=== PATIENT | female | born 1985 | race Caucasian/White ===

== ENCOUNTER → 2021-03-02 11:02 | Outpatient (CLI) | payer OTHER, SELFPAY ==
--- NOTE | 2021-03-02 11:13 | DIET.PN1 ---
Dietary Progress Note Assessment: 35y 10w F attending RD visit for help with dietary recommendations to support her with her new dx of eosinophilic esophagitis. 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 During this time pt started experiencing a lot of burping and heartburn. She attributed this to stress or thinking she had a gastric ulcer from taking ibuprofen. family hx of EOE with father needing stretched esophagus, food and liquid getting stuck in throat. Pt started eliminating dairy from diet with some sx resolving and had diagnostic EGD indicating EOE just above threshold for diagnosis. Pt did EOE elimination diet x2.5w, sx resolved, went to [facility] for [place], ate all the food, felt worse again. EOE elimination: Dairy, wheat, eggs, soy chicken, pork, beef, corn Pt is craving carbs and having a tough time following EOE diet, wants to ensure getting proper nutrition for supporting and to reduce sx. Pt is taking vitamin daily. Ht: 5'10 Wt: 127# (maybe lost weight) BMI: 17.9 (underweight) UBW: 130-135# Nutrition Diagnosis: nutrition related knowledge deficit r/t diet to support and EOE aeb pt previously on restrictive elimination diet to manage EOE, pt 10w , BMI 17.9 (underweight), pt has many questions on nutrition for her current condition. Interventions: 1. Discussed nutrients of concern during and food sources of each including substitutions for the top allergens. Provided pt handout to reinforce teaching. 2. Discussed current research on EOE elimination diet with dairy and wheat being top two offenders. Research shows good results with elimination of dairy, wheat, eggs, soy, tree nuts, peanuts with the goal of challenging each food individually once sx resolve to assess for sx triggering foods. 3. Because pt not having dysphagia and her morning sickness is leading to food aversions, pt will avoid dairy and wheat for the next few weeks until morning sickness lightens up at which point she can start the 4 or 6 food elimination diet, substituting approved foods for those eliminated to ensure adequate intake nutrients. Pt has a 4w meal plan to follow. 4. At some point after delivery, pt will test all foods to try to induce sx trigger to ensure pt is only avoiding foods which actually cause sx. EER: 27mg iron, 600mcg folate, 1200mg calcium, 200mcg iodine in addition to reccs for healthy female adult Monitoring/Evaluations: pt will schedule prn or if weight continues to drop rather than increase. Electronically Signed by: Marisa Russell 03/02/21 11:13 Clinical Dietitian [address] [address]
== END ==
PROVIDERS: Referring Provider Internal Medicine Gastroenterology; Visit Provider Internal Medicine Gastroenterology
DX: O26.891 Other specified pregnancy related conditions, first trimester (principal); K20.0 Eosinophilic esophagitis; Z71.3 Dietary counseling and surveillance; Z3A.10 10 weeks gestation of pregnancy; Z68.1 Body mass index [BMI] 19.9 or less, adult
CPT/HCPCS: 97802

== ENCOUNTER → 2021-05-05 10:50 | Outpatient (CLI) | payer OTHER, SELFPAY ==
--- NOTE | 2021-05-05 | DI.US.S_ITS ---
PROCEDURE: US OB >= 14 WEEKS FETUS INDICATIONS: ANATOMY SCAN OUTSIDE/PRIOR DATING DATA: Last menstrual period (LMP): 12/18/2020. LMP-based estimated date of delivery (GOYO): 09/24/2021. First dating scan (date and location): 05/05/2021. Estimated date of delivery (GOYO) from first dating scan: 09/25/2021. TECHNIQUE: Real-time scanning was performed of the fetus, with image documentation and biometric measurements. Endovaginal scanning: None COMPARISON: None. FINDINGS: General: A single living intrauterine gestation is present. Presentation: Variable. Placenta: Placental position is anterior , without previa. Amniotic fluid index: 15.2 cm, normal range is 5-24 cm. heart rate: 149 beats per minute. Maternal cervical canal: 3.9 cm long. Normal lower limit is 2.5 cm. biometrics: Biparietal diameter: 4.5 cm, 19 week 4 day Head circumference: 16.6 cm, 19 week 2 day Abdominal circumference: 14.7 cm, 20 week 0 day Femur length: 3.1 cm, 19 week 3 day Clinically estimated gestational age: Not applicable Composite gestational age from present scan: 19 week 4 day Estimated weight and percentile: 306 g, 43 percentile Anatomic survey: Neuro: Ventricles are non-dilated at less than 10 mm. Cisterna magna is normal at 3-11 mm. Cerebellum is normal in size and morphology. Nuchal skin fold: 6.2 mm, upper limits of normal Face: Nose and lips, facial profile are normal. Spine: No evidence for spina bifida. Heart: Four-chamber heart and outflow tracts are not well visualized on current exam Diaphragm: Diaphragm is intact. Stomach: Left-sided stomach is present. Kidneys: No hydronephrosis. Normal is less than 5 mm in 2nd trimester, less than 7 mm in 3rd trimester. Cord: 3-vessel cord has orthotopic insertion. Bladder: Normal in size. Extremities: All 4 extremities identified. IMPRESSION: Single live intrauterine consistent with a 19 week 4 day gestation. Four-chamber heart and outflow tracts are not well visualized on current exam, and will be further evaluated on follow-up imaging. Nuchal fold thickness 6.2 mm, upper limits of normal for gestational ag Approved by: Tenzin Hopkins M.D. on 05/05/2021 at 13:33 e
== END ==
PROVIDERS: Referring Provider Nurse Practitioner Obstetrics & Gynecology; Visit Provider Nurse Practitioner Obstetrics & Gynecology
DX: Z3A.19 19 weeks gestation of pregnancy; Z36.89 Encounter for other specified antenatal screening
CPT/HCPCS: 76811

== ENCOUNTER → 2021-07-06 07:00 | Outpatient (CLI) | payer OTHER, SELFPAY ==
[2021-07-06 08:52] LABS: Glucose Fasting 71 mg/dL (70-100)
[2021-07-06 08:53] LABS: Glucose 1 Hour 150 mg/dL (70-170)
[2021-07-06 10:20] LABS: Glucose Tol Interpretation INTERPRETATION
[2021-07-06 10:59] LABS: Glucose 3 Hour 85 mg/dL (70-115)
[2021-07-06 11:25] LABS: Glucose 2 Hour 124 mg/dL (70-140)
== END ==
PROVIDERS: Referring Provider Nurse Practitioner Obstetrics & Gynecology; Visit Provider Nurse Practitioner Obstetrics & Gynecology
DX: Z34.90 Encounter for supervision of normal pregnancy, unspecified, unspecified trimester (principal); Z3A.26 26 weeks gestation of pregnancy
CPT/HCPCS: 36415; 82951; 82952

== ENCOUNTER → 2021-08-30 20:30 | Outpatient (ROUT) | payer OTHER, SELFPAY ==
[2021-08-31 15:34] LABS: Strep Grp B PCR NEG for Grp B Strep
== END ==
PROVIDERS: Visit Provider Nurse Practitioner Obstetrics & Gynecology
DX: Z34.90 Encounter for supervision of normal pregnancy, unspecified, unspecified trimester (principal); Z36.85 Encounter for antenatal screening for Streptococcus B; Z3A.36 36 weeks gestation of pregnancy
CPT/HCPCS: 87653

== ENCOUNTER 2021-10-05 07:01 | Inpatient (IN) | payer OTHER, SELFPAY ==
--- NOTE | 2021-10-05 07:24 | PM.OBHP.1 ---
OB HPI Date/Time Date of admission: 10/05/21 Date Patient Seen: 10/05/21 Time Patient Seen: 07:15 History of Present Condition Chief complaint: INDUCTION : 1 Para: 0 Estimated Date of Delivery: 09/24/21 Estimated Gestational Age (weeks): 41.4 Narrative: Isabel Taylor is a 36 year old female @ [id number] by LMP and 10wk US who presents for IOL. Has been feeling BH ctx, but nothing uncomfortable. No vaginal bleeding or leaking of fluid. Uncomplicated PN care w/ CNM. Desires low intervention . is present and supportive. Indications Indication for induction OB: post dates History of Present care: good care, initiated at week # (10), number of visits (13) and pounds weight gain (21.6) Dating criteria: LMP confirmed by 1st trimester US Ultrasounds: normal 1st trimester US, normal mid trimester US and other (37wk growth WNL, 41wk MARSHA 6.39cm) Obstetrical complications: none Medical complications: none Preadmission Labs Blood type: B (+) positive -: Antibody screen: negative, GBS status: negative, HBsAG: negative, HIV: negative and RPR/VDLR: negative -: Chlamydia screen: not detected and Gonorrhea screen: not detected -: Rubella: immune and Varicella: immune HCT: 35.9 HCAB: negative 1 hr GTT: 144 3 hr GTT: 1 hr (150), 2 hr (124) and 3 hr (85) Fasting blood glucose: 71 Evaluation Evaluation Baseline heart rate: 135 Variability: Moderate (11-25) monitor accelerations: Present Monitor Decelerations: Absent Contraction Frequency (minutes): 0 Status: Category l Dilation (cm): 4.5 Effacement (%): 80 Dilation: 3-4 cm Effacement: >/=80% station: -2 Position of cervix: posterior Consistency: soft Kendrick score: 8 PFSH Medical History (Updated 10/05/21 @ 07:36 by Layne Dennison CNM) Abnormal Pap smear of cervix Family History Other Autoimmune disorder Preeclampsia Social History marital status: household members: spouse occupational status: employed Meds Home Medications and Allergies Home Medications Medication Instructions Recorded Confirmed Type pantoprazole 40 mg tablet,delayed 40 mg PO DAILY 10/05/21 10/05/21 History release Allergies Allergy/AdvReac Type Severity Reaction Status Date / Time Penicillins Allergy Severe Hives and Verified 10/05/21 07:42 Angioedema cefaclor [From Ceclor] Allergy Unknown unknown Verified 10/05/21 07:42 loracarbef [From Lorabid] Allergy Unknown unknown Verified 10/05/21 07:42 Review of Systems Review of Systems ROS: Yes All systems reviewed with the patient and are negative except as otherwise documented OB Exam Presentation: vertex Assessment and Plan Assessment and Plan Assessment and Plan narrative: A: [place] @ 41.4, not in labor Postdates IOL Cervical ripening not indicated, appropriate for pitocin GBS prophylaxis not indicated Category 1 FHT P: Admit, routine orders Begin pitocin per protocol Reassess 4-6 hours or sooner PRN
[2021-10-05 08:22] LABS: Add Manual Diff / Slide Review NO; Basophils Absolute Auto 0 /uL (0-100); Basophils Percent Auto 0.4 % (0-2); Eosinophils Absolute Auto 0 /uL (0-450); Eosinophils Percent Auto 0.3 % (2-4); Hematocrit 36.3 % (36-46); Hemoglobin 12.8 g/dL (12.0-16.0); Lymphocytes Absolute Auto 1700 /uL (1100-4500); Mean Corpuscular HGB Conc 35.1 % (30-36); Mean Corpuscular Hemoglobin 31.1 PG (26-34); Mean Corpuscular Volume 88.5 fL (80-100); Monocytes Absolute Auto 600 /uL (0-900); Monocytes Percent Auto 6.4 % (3-14); Neutrophils Absolute Auto 7400 /uL (1500-7000); Neutrophils Percent Auto 75.9 % (50-75); Platelet Count 140 X10^3/uL (150-400); Red Blood Cell Count 4.11 X10^6/uL (4.0-5.2); Red Cell Distribution Width 12.8 % (11.6-14.8); White Blood Cell Count 9.7 X10^3/uL (4.5-11.0)
[2021-10-05] MEDS: LACTATED RINGERS 1,000 ML 100 ML IV ×2 (08:29→17:59)
[2021-10-05 08:34] LABS: COVID19 -Nasal RAPID Negative (Negative)
[2021-10-05] MEDS: OXYTOCIN PREMIX 30 UNIT/500 ML PLAST..BAG IV (08:44)
[2021-10-05 09:28] VITALS: BP 122/69
--- NOTE | 2021-10-05 11:05 | PM.OBPNLAB ---
Date/Time Date Patient Seen: 10/05/21 Time Patient Seen: 11:05 Pain Control Pain control: tolerating well Comments: Isabel reports feeling contractions as pressure similar to what she was feeling at home. Tolerating well. Hoping to spend some time walking. Pelvic Exam Dilation (cm): 4 Effacement (%): 80 station: -2 Comments: CE deferred. Contractions Contractions on admission: none Monitor mode: External Pitocin rate (mU/min): 6 Contraction frequency (min): 3 Contraction duration (min): 1 Contraction pattern: Regular Contraction intensity: Mild Status status: Category l Heart Rate Baseline: 135 Monitor Accelerations: Present Monitor Decelerations: Absent Monitor Variability: Moderate Assessment and Plan Assessment: induction ongoing Plan: continuous present management Comments: Encouraged ambulation and continued movement. Repeat CE after 2 hours of strong contractions Reassess in 4-6 hours or sooner PRN
--- NOTE | 2021-10-05 17:09 | PM.OBPNLAB ---
Date/Time Date Patient Seen: 10/05/21 Time Patient Seen: 17:09 Pain Control Pain control: tolerating well Comments: VS: BP 121/65mmHg, HR 91bpm, RR 16/min, T 37.1C Pelvic Exam Dilation (cm): 5 Effacement (%): 80 station: -1 Amniotic membrane status: Intact Contractions Contractions on admission: irregular Monitor mode: External Pitocin rate (mU/min): 16 Contraction frequency (min): 2 Contraction duration (min): 1 Contraction pattern: Regular Contraction intensity: Moderate Status status: Category ll (overall reassuring) Heart Rate Baseline: 150 Monitor Accelerations: Present Monitor Decelerations: Variable Monitor Variability: Moderate Assessment and Plan Assessment: induction ongoing Plan: continuous present management Comments: Discussed option for AROM which patient desires. Plan light snack for patient, then AROM and ambulation. Reassess 4 hours after AROM.
--- NOTE | 2021-10-05 23:40 | PM.OBPRVD ---
Events: Labor Induction (post dates) Labor & Delivery Delivery date: 10/05/21 Intrapartal Events: None Cervical ripening method: none Induction method: per pitocin protocol Delivery augmentation: rupture of membranes Delivery monitor: external FHT and external uterine Route of delivery: Episiotomy description: None L&D Laceration Description: Labial (left labial/periclitoral) Delivery repair: chromic (4.0) Estimated blood loss (mL): 20 Quantitative Blood Loss: 20 Anesthesia Type: Epidural Narrative: Nessa achieved moderate pain relief with epidural but quickly felt increasing rectal pressure. Was examined and found to be complete and +1. Slow but steady descent of head with coached pushing efforts and position changes over 3 hour second stage. Delivered KERRY, restituted to OA. No nuchal cord and shoulders delivered easily without additional manuevers. Four-handed catch with SNM, Devika Wade, and FOB, under my direct supervision. Baby was placed on maternal abdomen for drying and [id number]. Pitocin given through IV for AMTSL. Perineum and vagina inspected and revealed first degree periclitoral/left labial laceration and superficial perineal split. Delayed cord clamping after pulsating ceased, double clamped by SNM and cut by FOB. Cord blood collected. Apparently intact placenta with 3 vessel cord delivered Schultze with gentle cord traction, trailing membranes teased out with ring forceps. Fundus immediately firm and bleeding scant. Laceration repaired under adequate epidural anesthesia with 4-0 chromic. QBL 20 ml. Mother and baby skin to skin and stable as I left the room. Baby 1: Infant gender: Male Presentation: vertex Position: Right Occiput Anterior Placenta delivery description: Spontaneous and Normal Configuration Cord Vessel Description: 3 Vessels score (1 min): 9 score (5 min): 9 weight: 4.079 kg Plan for aftercare: Routine care
[2021-10-06] MEDS: KETOROLAC 30 MG/ML VIAL IV (05:24)
[2021-10-06] MEDS: ACETAMINOPHEN 325 MG TABLET 650 MG PO ×2 (09:20→15:26)
[2021-10-06] MEDS: LANOLIN OINT 7 GM 1 APPLIC TOP (11:36)
[2021-10-06] MEDS: IBUPROFEN 600 MG TABLET PO (11:36)
--- NOTE | 2021-10-06 18:06 | PM.OBDS.1 ---
Discharge Providers Provider Date of admission: 10/05/21 07:01 Discharge Date: 10/06/21 Primary care physician: Doctor Xin MD Consults: 10/06/21 23:39 Consult to Malted Milk Supervisor Routine Comment: Discharge provider: Layne Dennison CNM Summary Hospital Course Date Patient Seen: 10/06/21 Time Patient Seen: 17:45 Diagnoses: O70.0 Hospital Course: PPD1 s/p NSVB: Nessa is voiding, ambulating and independently. Tolerating a general diet. Pain is well controlled w/ PO medication. Vaginal bleeding is light,without clots. Feels ready for d/c to hoe tonight. Hsband remains present and supportive. Peripartum Data Infant Delivery Method: Natural Vaginal Episiotomy description: None complications: none [place] 1: Gender: Male Disposition of : home Discharge Diagnosis (1) Del w/ 1 deg lac-unsp: Start Date: 10/05/21 Start Time: 22:43 Status: Acute Status at Discharge Cognitive/behavioral status at discharge: oriented Functional status at discharge: independent ambulation Overall status at discharge: patient is back to baseline Time Spent with Patient Time attestation: Total time spent providing and/or coordinating discharge services: Time spent: Greater than 30 minutes Specific discharge activities: Routine PP orders and precautions Objective Labs Result Diagrams: 10/05/21 08:05 Exam Vital Signs (past 8 hours): BP 115/60mmHg, HR 73bpm, T 36.8C Axillary Presentation: vertex Discharge Plan Discharge Plan Patient Disposition: Home Discharge orders & Medications Prescriptions: Discontinued pantoprazole 40 mg Tablet,Delayed Release (Dr/Ec) 40 mg PO DAILY 0RF Follow up/Referrals: Doctor Lauren MD [Primary Care Provider] - Layne Dennison CNM [Advanced Sheet Mill Supervisor] - (Follow-up by telehealth 10/18/21 @ 1245 Follow-up in office 11/08/21 @ 1100) Diet/Activity/Treatments Diet: Diet as Tolerated and Regular Activity: pelvic rest x 6 weeks Skin/Wound/Dressing Care Report to your healthcare provider any signs of infection, such as:: chills, fever, increased pain, unusual drainage and unusual redness Visit Report/Discharge Packet Stand Alone Forms: Discharge: Care Discharge Data Primary Care Provider: Doctor Xin
[2021-10-06 18:16] VITALS: BP 122/69
== END 2021-10-06 19:35 | disposition home or self-care (01) | DRG 807 ==
PROVIDERS: Admitting Provider Nurse Practitioner Obstetrics & Gynecology; Referring Provider Nurse Practitioner Obstetrics & Gynecology; Visit Provider Nurse Practitioner Obstetrics & Gynecology
DX: O48.0 Post-term pregnancy (principal); Z37.0 Single live birth; Z3A.41 41 weeks gestation of pregnancy; O70.0 First degree perineal laceration during delivery; Z20.822 Contact with and (suspected) exposure to COVID-19
CPT/HCPCS: 01967; 36415; 59050; 85025; 86850; 86900; 86901; 87635; C9803; G0379; J1885; J2590

== ENCOUNTER → 2022-10-14 08:16 | Outpatient (CLI) | payer OTHER, SELFPAY ==
--- NOTE | 2022-10-14 08:17 | DI.RAD.S_ITS ---
PROCEDURE: XR LUMBAR SPINE 6V W BENDING INDICATIONS: 5 years, low back pain and right radic TECHNIQUE: 7 views of the lumbar spine acquired, including flexion and extension views and oblique views. COMPARISON: None. FINDINGS: Bones: Five nonrib-bearing vertebrae are present. Trace levoconvex curvature. No spondylolisthesis. No vertebral body compression fractures. No suspicious bony lesions. Mild degenerative facet hypertrophy is seen in the lower lumbar spine. Soft tissues: Overlying bowel gas pattern is normal. No suspicious soft tissue calcifications. Intrauterine device is seen projecting over the pelvis. Flexion/extension: There is normal range of motion, with preserved normal alignment. Obliques: No pars defects. IMPRESSION: Mild spondylosis. Consider lumbar spine MRI for further evaluation if indicated clinically. Approved by: Pierce Fraser M.D. on 10/14/2022 at 11:03
== END ==
PROVIDERS: Family Provider Nurse Practitioner Obstetrics & Gynecology; PCP Family Medicine; Referring Provider Family Medicine; Visit Provider Family Medicine
DX: M47.26 Other spondylosis with radiculopathy, lumbar region
CPT/HCPCS: 72114

== ENCOUNTER → 2023-03-02 10:39 | Outpatient (CLI) | payer OTHER, SELFPAY | PROVIDERS: Family Provider Nurse Practitioner Obstetrics & Gynecology; PCP Family Medicine; Referring Provider Family Medicine; Visit Provider Family Medicine | DX: Z23 Encounter for immunization (principal) | CPT/HCPCS: 90471; 90686 ==

== ENCOUNTER → 2023-12-12 | Outpatient (CLI) | payer OTHER, SELFPAY ==
--- NOTE | 2023-12-12 10:21 | DI.US.S_ITS ---
PROCEDURE: US OB >= 14 WEEKS FETUS INDICATIONS: 20 week anatomy OUTSIDE/PRIOR DATING DATA: Last menstrual period (LMP): 07/21/23. LMP-based estimated date of delivery (GOYO): 04/26/24. First dating scan (date and location): This study. Estimated date of delivery (GOYO) from first dating scan: 12/12/23. The calculations are made using the above GOYO of 12/12/23. TECHNIQUE: Real-time scanning was performed of the fetus, with image documentation and biometric measurements. Endovaginal scanning: Not needed COMPARISON: [facility], OB >= 14 WEEKS FETUS, 05/05/2021, 11:03. FINDINGS: General: A single living intrauterine gestation is present. Presentation: Vertex. Placenta: Placental position is posterior , without previa. Amniotic fluid index: 17.1 cm, normal range is 5-24 cm. Single deepest vertical pocket is 5.2 cm. heart rate: 144 beats per minute. Maternal cervical canal: 3.4 cm long. Normal lower limit is 2.5 cm. biometrics: Biparietal diameter: 5.0 cm, 21 weeks 1 day Head circumference: 18.3 cm, 20 weeks 5 days Abdominal circumference: 15.2 cm 20 weeks 3 days Femur length: 3.4 cm, 20 weeks 5 days Clinically estimated gestational age: 20 weeks 4 days Composite gestational age from present scan: 20 weeks 5 days Estimated weight and percentile: 363 g, 45th percentile Anatomic survey: Neuro: Ventricles are non-dilated at less than 10 mm. Cisterna magna is normal at 3-11 mm. Cerebellum is normal in size and morphology. Nuchal skin fold: Normal at less than 6 mm between 14-21 weeks gestational age. Face: Nose and lips, facial profile are normal. Spine: No evidence for spina bifida. Heart: 4-chambered heart is present, with normal ventricular outflow tracts. Diaphragm: Diaphragm is intact. Stomach: Left-sided stomach is present. Kidneys: No hydronephrosis. Normal is less than 5 mm in 2nd trimester, less than 7 mm in 3rd trimester. Cord: 3-vessel cord has orthotopic insertion. Bladder: Normal in size. Extremities: All 4 extremities identified. IMPRESSION: Appropriate interval growth, no anomaly seen. Vertex presentation, normal amniotic fluid volume, normal maternal cervical length. We strive to produce accurate, complete, and clear reports of imaging services. To assist us in improving patient care, this report was composed using standard report templates and voice recognition software. Therefore, it may contain abnormal punctuation, insertions and/or omissions. Occasional wrong-word or sound-alike substitutions may occur. Though we review the report and make efforts to correct it, we do recommend that the report be read carefully in proper context to recognize any text inaccuracies. Dictated by: Nabor Montalvo M.D. on 12/15/2023 at 13:12 Approved by: Nabor Montalvo M.D. on 12/15/2023 at 13:14
== END ==
PROVIDERS: Family Provider Nurse Practitioner Obstetrics & Gynecology; PCP Family Medicine; Referring Provider Nurse Practitioner Obstetrics & Gynecology; Visit Provider Nurse Practitioner Obstetrics & Gynecology
DX: Z34.92 Encounter for supervision of normal pregnancy, unspecified, second trimester (principal); Z3A.20 20 weeks gestation of pregnancy
CPT/HCPCS: 76811

== ENCOUNTER → 2024-01-25 06:55 | Outpatient (CLI) | payer OTHER, SELFPAY ==
[2024-01-25 08:16] LABS: Hematocrit 36.8 % (36-46); Hemoglobin 12.6 g/dL (12.0-16.0); Mean Corpuscular HGB Conc 34.3 % (30-36); Mean Corpuscular Hemoglobin 31.1 PG (26-34); Mean Corpuscular Volume 90.5 fL (80-100); Platelet Count 184 X10^3/uL (150-400); Red Blood Cell Count 4.07 X10^6/uL (4.0-5.2); Red Cell Distribution Width 12.7 % (11.6-14.8); White Blood Cell Count 7.6 X10^3/uL (4.5-11.0)
[2024-01-25 09:19] LABS: Glucose Tol Interpretation INTERPRETATION
[2024-01-25 09:25] LABS: Glucose Fasting 79 mg/dL (70-100)
[2024-01-25 09:58] LABS: Glucose 1 Hour 174 mg/dL (70-170)
[2024-01-25 10:38] LABS: Glucose 2 Hour 122 mg/dL (70-140)
== END ==
PROVIDERS: Family Provider Nurse Practitioner Obstetrics & Gynecology; PCP Family Medicine; Referring Provider Nurse Practitioner Obstetrics & Gynecology; Visit Provider Nurse Practitioner Obstetrics & Gynecology
DX: Z34.90 Encounter for supervision of normal pregnancy, unspecified, unspecified trimester (principal); Z13.1 Encounter for screening for diabetes mellitus; Z3A.26 26 weeks gestation of pregnancy
CPT/HCPCS: 36415; 82951; 82952; 85027

== ENCOUNTER → 2024-02-23 16:21 | Outpatient (CLI) | payer OTHER, SELFPAY | PROVIDERS: Family Provider Nurse Practitioner Obstetrics & Gynecology; PCP Family Medicine; Referring Provider Internal Medicine; Visit Provider Internal Medicine | DX: Z23 Encounter for immunization (principal) | CPT/HCPCS: 90471; 90656 ==

== ENCOUNTER 2024-04-29 14:57 | Inpatient (IN) | payer OTHER, SELFPAY ==
--- NOTE | 2024-04-29 15:26 | PM.OBHP.1 ---
OB HPI Date/Time Date of admission: 04/29/24 Date Patient Seen: 04/29/24 Time Patient Seen: 15:26 History of Present Condition Chief complaint: labor : 2 Para: 1 Estimated Date of Delivery: 04/26/24 Estimated Gestational Age (weeks): 40w4d Narrative: Isabel Taylor is a 38 year old female at 40w4d by LMP. She arrived in active labor that came on very quickly today. Nessa had an uncomplicated with CNMs. She has a history of prolapse from prior NSVB. During this had significant grief related to son's diagnosis with rare genetic disease, so is now taking lexapro 2.5 mg daily; had COVID approx 1 month ago. Nessa is here supported by her teletypewriter installerJessika and her , Kobi. History of Present care: good care, initiated at week # (10), number of visits (11) and pounds weight gain (43) Dating criteria: LMP confirmed by 1st trimester US Ultrasounds: normal 1st trimester US and normal mid trimester US Obstetrical complications: none Medical complications: psychiatric (anxiety and depression r/to grief), musculoskeletal (pelvic floor prolapse) and other (covid positive Apr 02 2024) Preadmission Labs Blood type: B (+) positive -: Antibody screen: negative, Cystic fibrosis screen: negative, GBS status: negative, HBsAG: negative, HIV: negative, HSV 1: unknown, HSV 2: unknown and RPR/VDLR: negative -: Chlamydia screen: not detected and Gonorrhea screen: not detected -: Rubella: immune and Varicella: immune HCT: 36.8 PAP: Normal ([place] & HPV neg (06/13/2022)) Sequential screen: MsAFP negative Cell-free DNA: NEGATIVE, XX Narrative: 2 GTT: 79/174/122 Prior (ies) History: Hx # Term Pregnancies: 1 Hx # Pregnancies: 0 Number of Living Children: 1 Multiple births: 0 Spontaneous abortions: 0 Ectopic pregnancies: 0 Elective abortions: 0 Evaluation Evaluation Baseline heart rate: 145 Variability: Moderate (11-25) monitor accelerations: Present Monitor Decelerations: Absent Contraction Frequency (minutes): 2 (2-3) Uterine Contraction Intensity: Strong/Firm Status: Category ll Dilation (cm): 6 Effacement (%): 90 Dilation: >/=5 cm Effacement: >/=80% station: -1 Position of cervix: mid Consistency: soft Kendrick score: 11 [facility] Medical History (Updated 04/29/24 @ 15:52 by Nichole Ac CNM, SECONDARY HISTORY TEACHER) Lichen sclerosus (~2018) Del w/ 1 deg lac-unsp Headache Chicken pox Abnormal Pap smear of cervix Surgical History (Updated 10/16/22 @ 21:43 by Katie Rivas) History of esophagogastroduodenoscopy (EGD) (~10/2020) Family History (Updated 04/29/24 @ 15:54 by Nichole Ac CNM, RICHARD) Father Hypertension Mother Granuloma annulare Grandfather Mental health problem Grandmother Colon cancer History of heart disease Grandfather Cancer Grandmother Colon cancer Skin cancer Other Autoimmune disorder Genetic defect Preeclampsia Social History marital status: household members: spouse occupational status: employed Smoking Status: Never smoker alcohol intake: current (1 drink per week ) substance use type: does not use Meds Home Medications and Allergies Home Medications Medication Instructions Recorded Confirmed Type clobetasol 0.05 % topical ointment 1 applic topical QWEEK 10/11/22 08/04/23 History estradiol 0.01% (0.1 mg/gram) 1 g vaginal .QOD 10/11/22 08/04/23 History vaginal cream alprazolam 0.25 mg tablet 0.25 mg PO ONCE PRN situational 04/04/23 08/04/23 Rx anxiety air travel #10 tabs [id number] fum-folic [id number] PO 08/04/23 08/04/23 History [One A Day Women's DHA] progesterone micronized 100 mg 100 mg PO BEDTIME #90 caps 08/04/23 08/04/23 Rx capsule Allergies Allergy/AdvReac Type Severity Reaction Status Date / Time Penicillins Allergy Severe Hives and Verified 07/13/23 10:34 Angioedema cefaclor [From Ceclor] Allergy Unknown Childhood Verified 07/13/23 10:34 loracarbef [From Lorabid] Allergy Unknown Childhood Verified 07/13/23 10:34 Review of Systems Review of Systems Narrative: Negative except as mentioned in HPI OB Exam Vital signs Blood Pressure: 125/57 Pulse Rate: 86 Respiratory Rate: 16 Temperature: 97.2 F Assessment and Plan Assessment and Plan Assessment and Plan narrative: in active labor at term GBS neg Rh pos Hx of anxiety and depression Lichen sclerosus Admit to L&D IV access Intermittent auscultation Anticipate NSVB Time-Based Coding :: [TOTAL MINUTES] spent with patient and on the chart (including review of chart, obtaining history, exam, reviewing outside data, placing orders, documenting exam and treatment plan, and counseling patient) on [DATE].
[2024-04-29 15:39] LABS: Add Manual Diff / Slide Review NO; Basophils Absolute Auto 0 /uL (0-100); Basophils Percent Auto 0.2 % (0-2); Eosinophils Absolute Auto 0 /uL (0-450); Eosinophils Percent Auto 0.2 % (2-4); Hematocrit 44.7 % (36-46); Hemoglobin 15.2 g/dL (12.0-16.0); Lymphocytes Absolute Auto 1800 /uL (1100-4500); Lymphocytes Percent Auto 12.6 % (25-40); Mean Corpuscular Hemoglobin 30.4 PG (26-34); Mean Corpuscular Volume 89.4 fL (80-100); Monocytes Absolute Auto 1100 /uL (0-900); Monocytes Percent Auto 7.8 % (3-14); Neutrophils Absolute Auto 11200 /uL (1500-7000); Neutrophils Percent Auto 79.2 % (50-75); Platelet Count 176 X10^3/uL (150-400); Red Cell Distribution Width 13.3 % (11.6-14.8); White Blood Cell Count 14.1 X10^3/uL (4.5-11.0)
[2024-04-29] MEDS: ONDANSETRON 4 MG/2 ML INJ IV (15:42)
[2024-04-29 16:02] VITALS: BP 125/57; PULSE 86; RESP 16; TEMP 36.2
[2024-04-29 18:54] VITALS: BP 125/57
[2024-04-29] MEDS: METHYLERGONOVINE 0.2 MG/ML VIAL IM (21:45)
--- NOTE | 2024-04-29 21:54 | PM.OBPRVD ---
Events: Other (normal, uncomplicated and labor without intervention) Labor & Delivery Delivery date: 04/29/24 Delivery Time: 21:04 Intrapartal Events: None Delivery monitor: external FHT (intermittent) Route of delivery: L&D Laceration Description: Periurethral - 1st Degree and Perineal - 1st Degree Estimated blood loss (mL): 957 Quantitative Blood Loss: 957 Anesthesia Type: None Narrative: Nessa's spontaneous labor progressed normally. CNM in room for labor support from 1700 on due to strong contractions accompanied by vomiting. Labor progressed well until approx 1800 when contractions changed in quality. Nessa reported increased pressure and very low back pain but did not request exam until just before SROM, so repeat exam not performed and suspect gentle second stage/station changes. Nessa did not feel the spontaneous urge to push until SROM at 2018, and then pushed effectively for a 45 minute 2nd stage. FHR was reassuring throughout 2nd stage via intermittent auscultation. NSVB of baby at 2104, shoulders delivered easily. Baby was passed through maternal legs and placed on bed in front of Nessa for her and Hal to greet. When Nessa was ready to lie down, she picked up her baby girl, Ji. IV pitocin started at 334 ml/hr. Apgars 8/9. They remained skin to skin while cord was cut and placenta was delivered. 513 mL bleeding and clots prior to placental delivery. 3 vessel cord clamped and cut by Kobi approximately 10 minutes of life after cord pulsing had stopped. Placenta delivered spontaneously with maternal efforts and CNM downward traction and appeared to be intact but delivered with more clots so pitocin increased to 999 ml/hr and 0.2 mcg methergine given IM; QBL 957 mL. Cord blood collected for blood typing. Perineum inspected and found to have hemostatic first degree perineal laceration not requiring repair. Left periurethral laceration also noted. Blood loss measured and total QBL is 957 mL. Mom and baby left stable and is being initiated. Nessa & Kobi are thrilled to meet their daughter. Nichole RAMOS, CNM, IBCLC Baby 1: Infant gender: Female Presentation: vertex Position: Left Occiput Anterior Placenta delivery description: Spontaneous Cord Vessel Description: 3 Vessels score (1 min): 9 score (5 min): 9 weight: 4.61 kg Plan for aftercare: Routine care
[2024-04-29] MEDS: ACETAMINOPHEN 325 MG TABLET 650 MG PO (22:29)
[2024-04-29] MEDS: DERMOPLAST SPRAY 20% 60 ML 1 SPRAY TOP (22:29)
[2024-04-29] MEDS: KETOROLAC 30 MG/ML VIAL IV (22:29)
[2024-04-29] MEDS: WITCH HAZEL/GLYCERIN PADS 1 EACH TOP (22:30)
[2024-04-29] MEDS: TRANEXAMIC ACID 1,000 MG in SODIUM CHLORIDE 0.9% 100 ML 200 MG IV (22:58)
[2024-04-30] MEDS: IBUPROFEN 600 MG TABLET PO ×2 (04:49→13:25)
[2024-04-30] MEDS: ACETAMINOPHEN 325 MG TABLET 650 MG PO ×3 (04:49→16:20)
[2024-04-30 05:45] LABS: Add Manual Diff / Slide Review NO; Basophils Absolute Auto 300 /uL (0-100); Basophils Percent Auto 1.6 % (0-2); Eosinophils Absolute Auto 100 /uL (0-450); Eosinophils Percent Auto 0.5 % (2-4); Hematocrit 35.6 % (36-46); Hemoglobin 12.2 g/dL (12.0-16.0); Lymphocytes Absolute Auto 1300 /uL (1100-4500); Lymphocytes Percent Auto 6.9 % (25-40); Mean Corpuscular HGB Conc 34.2 % (30-36); Mean Corpuscular Hemoglobin 30.1 PG (26-34); Mean Corpuscular Volume 88.1 fL (80-100); Monocytes Absolute Auto 1300 /uL (0-900); Monocytes Percent Auto 6.8 % (3-14); Neutrophils Absolute Auto 15700 /uL (1500-7000); Neutrophils Percent Auto 84.2 % (50-75); Platelet Count 179 X10^3/uL (150-400); Red Blood Cell Count 4.04 X10^6/uL (4.0-5.2); Red Cell Distribution Width 13.3 % (11.6-14.8); White Blood Cell Count 18.6 X10^3/uL (4.5-11.0)
[2024-04-30] MEDS: ESCITALOPRAM 10 MG TABLET 2.5 MG PO (08:54)
--- NOTE | 2024-04-30 19:34 | PM.OBDS.1 ---
Discharge Providers Provider Date of admission: 04/29/24 14:57 Discharge Date: 04/30/24 Primary care physician: Deanna Peterson DO Consults: 04/29/24 15:24 Consult to Anesthesiology Urgent Comment: Consulting Provider: Anesthesiologist Reason for consultation: Epidural Has provider been notified: No 04/30/24 21:50 Consult to Child Watch Attendant Routine Comment: Discharge provider: Nichole Ac CNM, ARNP Summary Hospital Course Diagnoses: O80 Hospital Course: Arrived to L&D in active labor. Progressed to complete, labored down and then pushed actively for 45 min resulting in NSVB of baby girl. 1st degree laceration not repaired. QBL 957 mL. . Peripartum Data Delivery Method: Natural Vaginal Laceration Description: Periurethral - 1st Degree and Perineal - 1st Degree Almond 1: Gender: Female Discharge Diagnosis (1) (normal spontaneous vaginal delivery): Status: Acute Status at Discharge Cognitive/behavioral status at discharge: oriented and calm Functional status at discharge: independent ambulation Overall status at discharge: patient is progressing back to baseline Time Spent with Patient Time attestation: Total time spent providing and/or coordinating discharge services: Time spent: Less than 30 minutes Specific discharge activities: discharge teaching Objective Labs 04/30/24 05:27 Labs: Laboratory Results - last 24 hr 04/30/24 05:27 WBC 18.6 H RBC 4.04 Hgb 12.2 Hct 35.6 L MCV 88.1 MCH 30.1 MCHC 34.2 RDW 13.3 Plt Count 179 Neut % (Auto) 84.2 H Lymph % (Auto) 6.9 L Mineral % (Auto) 6.8 Eos % (Auto) 0.5 L Baso % (Auto) 1.6 Neut # (Auto) 23468 H Lymph # (Auto) 1300 Mineral # (Auto) 1300 H Eos # (Auto) 100 Baso # (Auto) 300 H Exam Vital Signs (past 8 hours): BP: 110/67 HR: 78 bpm RR 16/min SpO2: 98% Other: Fundus firm at U, midline. Lochia scant Perineum intact with minimal edema Discharge Plan Discharge Plan Patient Disposition: Home Discharge orders & Medications Prescriptions: Continued estradiol 0.01 % (0.1 mg/gram) cream 1 g vaginal .QOD clobetasol 0.05 % ointment 1 applic topical QWEEK alprazolam 0.25 mg tablet 0.25 mg PO ONCE PRN (Reason: situational anxiety air travel) Qty: 10 0RF -vvif fum-folic ac-om3 [One A Day Women's DHA] See Rx Instructions .ROUTE .COMPLEX Rx Instructions: Take as directed progesterone micronized 100 mg capsule 100 mg PO BEDTIME Qty: 90 1RF Follow up/Referrals: Nichole Ac, JESSICA, STEAM GIGGER [Advanced Collections Officer] - (Please follow up yonas/ Nichole on your scheduled 2 week and 6 week follow up appointment per your email.) Diet/Activity/Treatments Diet: Diet as Tolerated and Regular Diet comment: increase fiber, iron, fluids to support healing Activity: low rocha x 2 weeks Cold/Heat Therapy: as needed Skin/Wound/Dressing Care Skin care: usual care Report to your healthcare provider any signs of infection, such as:: chills, fever, unusual drainage and unusual redness Visit Report/Discharge Packet Instructions: DI for Hemorrhage, Fitness, DI for Depression Stand Alone Forms: Discharge: Care, Patient Portal/API, Stroke Signs & Symptoms Discharge Data Primary Care Provider: Deanna Peterson
== END 2024-04-30 20:18 | disposition home or self-care (01) | DRG 807 ==
PROVIDERS: Admitting Provider Advanced Practice Midwife; Family Provider Nurse Practitioner Obstetrics & Gynecology; PCP Family Medicine; Referring Provider Advanced Practice Midwife; Visit Provider Advanced Practice Midwife
DX: O34.83 Maternal care for other abnormalities of pelvic organs, third trimester (principal); Z37.0 Single live birth; N81.89 Other female genital prolapse; O99.344 Other mental disorders complicating childbirth; F41.8 Other specified anxiety disorders; Z3A.40 40 weeks gestation of pregnancy
CPT/HCPCS: 36415; 59050; 85025; 86850; 86900; 86901; G0379; J1885; J2210; J2405

== ENCOUNTER → 2025-02-04 10:41 | Outpatient (CLI) | payer OTHER, SELFPAY ==
[2025-02-04 11:24] LABS: Add Manual Diff / Slide Review NO; Hematocrit 41.0 % (36-46); Hemoglobin 13.9 g/dL (12.0-16.0); Lymphocytes Absolute Auto 1400 /uL (1100-4500); Mean Corpuscular HGB Conc 33.8 % (30-36); Mean Corpuscular Hemoglobin 29.7 PG (26-34); Mean Corpuscular Volume 87.8 fL (80-100); Platelet Count 210 X10^3/uL (150-400)
[2025-02-04 12:08] LABS: Alanine Aminotransferase 13 IU/L (<35); Albumin 4.4 g/dL (3.5-5.0); Albumin Globulin Ratio 1.9 (1.0-2.8); Alkaline Phosphatase 55 U/L (38-126); Blood Urea Nitrogen 16 mg/dL (7-17); Calcium 9.4 mg/dL (8.4-10.2); Carbon Dioxide 28 mmol/L (22-32); Chloride 101 mmol/L (98-107); Estimated Glomerular Filt Rate > 60 mL/min (>60); Globulin 2.3 g/dL (1.7-4.1); Glucose 58 mg/dL (70-99); HEMOLYSIS < 15 (0-50); Potassium 4.1 mmol/L (3.4-5.1); Sodium 137 mmol/L (137-145); Total Protein 6.7 g/dL (6.3-8.2)
[2025-02-04 12:39] LABS: TSH w/ Reflex to FT4 1.98 uIU/mL (0.47-4.68)
[2025-02-05 04:36] LABS: CRP, High Sensitivity 0.27 mg/L (0.00-3.00)
[2025-02-07 01:08] LABS: ANA Screen, IFA Negative (.)
== END ==
PROVIDERS: PCP Family Medicine; Referring Provider Family Medicine; Visit Provider Family Medicine
DX: M25.50 Pain in unspecified joint (principal); M54.50 Low back pain, unspecified; E03.9 Hypothyroidism, unspecified; E78.5 Hyperlipidemia, unspecified
CPT/HCPCS: 36415; 80053; 84443; 85025; 85651; 86038; 86140; 86200; 86430